=== PATIENT | male | born 1970 | race Hispanic/Latino ===

== ENCOUNTER 2023-12-11 09:37 | Inpatient (IN) | payer OTHER ==
[~2023-12-11] VITALS: Ht 172.7 cm; Wt 91.9 kg
[2023-12-11] VITALS (111 sets, daily range): BP systolic 74–291; BP diastolic 42–116; PULSE 43–133; RESP 5–76; O2SAT 90–100
[2023-12-11] MEDS ORDERED: EPINEPHRINE IV SCH (10:30)
[2023-12-11] MEDS ORDERED: NACL 0.9% IV SCH (10:30)
[2023-12-11] MEDS ORDERED: FUROSEMIDE 40MG VIAL IV ONE (10:30)
[2023-12-11] MEDS: PHARMACY COMMUNICATION MISC SCH (10:30)
[2023-12-11] MEDS: FUROSEMIDE 40MG VIAL ONE (10:45)
[2023-12-11] MEDS: SODIUM BICARB 50MEQ 50ML VIAL 100 ML ONE (10:45)
[2023-12-11 10:49] LABS: ABG BASE EXCESS -4.7 mmol/L (-2.0-3.0); ABG HCO3 24.2 mmol/L (21.0-28.0); ABG OXYGEN SATURATION 90.4 % (95.0-99.0); ABG PCO2 61 mmHg (35-48); ABG PH 7.215 (7.35-7.450); CARBON MONOXIDE 0.5; DEVICE COMMENT RR NPLISA; HHb 9.5; PO2, ARTERIAL BG 66.6 mmHg (83.0-108.0); VENT MODE, BG AC (ROOM AIR)
[2023-12-11] MEDS: SODIUM CHLORIDE IV SCH (10:55)
[2023-12-11] MEDS: FENTANYL 1000 MCG IV SCH (10:55)
[2023-12-11] MEDS: NOREPINEPHRIN 4MG/NS 250ML 250 ML IV SCH (10:57)
[2023-12-11] MEDS ORDERED: CARV6.25 PO (10:58)
[2023-12-11] MEDS: ASPIRIN 325MG TAB PO ONE (10:58)
[2023-12-11] MEDS: ROCURONIUM BROMIDE 10MG/1ML 5ML VL IV ONE ×2 (10:58→13:58)
[2023-12-11] MEDS ORDERED: CLOP75TA32 PO (10:58)
[2023-12-11] MEDS: SODIUM BICARB 50MEQ 50ML VIAL IV ONE ×3 (10:58→18:19)
[2023-12-11] MEDS: FUROSEMIDE 40MG VIAL IV ONE (10:58)
[2023-12-11] MEDS ORDERED: POTA-202 PO (10:58)
[2023-12-11] MEDS ORDERED: ATOR-2 PO (10:58)
[2023-12-11] MEDS ORDERED: FURO40TA5 PO (10:58)
[2023-12-11] MEDS ORDERED: METF-446 PO (10:59)
[2023-12-11] MEDS ORDERED: ASPI-891 PO (10:59)
[2023-12-11] MEDS ORDERED: IBUP-2070 PO (10:59)
[2023-12-11] MEDS ORDERED: DOXY25SU3 PO (10:59)
[2023-12-11] MEDS ORDERED: PIOG15TA66 PO (10:59)
[2023-12-11] MEDS ORDERED: PHARMACY COMMUNICATION MISC SCH (11:00)
[2023-12-11] MEDS: FENTANYL 1000MCG+NS 100ML 100 ML IV ONE (11:08)
[2023-12-11] MEDS: MIDAZOLAM 100MG-0.9% NS 100ML 100 ML IV ONE (11:08)
[2023-12-11] MEDS: CLOPIDOGREL 300MG TAB NG ONE (11:13)
[2023-12-11] MEDS: HEPARIN 25,000 UNITS/250ML D5W 250 ML IV SCH (11:15)
[2023-12-11 11:30] LABS: CREATININE 1.2 mg/dL (0.5-1.3)
[2023-12-11] MEDS ORDERED: KCL 20 MEQ ERTAB PO PRN (11:30)
[2023-12-11] MEDS ORDERED: POTASSIUM CHLORIDE 20MEQ/100ML 100 ML IV PRN ×2 (11:30)
[2023-12-11] MEDS ORDERED: POTASSIUM CHLORIDE 10% ELIXIR 20 MEQ/15 ML UDCUP PO PRN (11:30)
[2023-12-11] MEDS ORDERED: MAGNESIUM 2GM PREMIX 50ML 50 ML IV PRN (11:30)
[2023-12-11] MEDS ORDERED: ACETAMINOPHEN 650 MG SUPPOSITORY RC PRN (11:30)
[2023-12-11 11:43] LABS: ALBUMIN 2.8 g/dL (3.5-5.0); BILIRUBIN,TOTAL 0.3 mg/dL (0.2-1.0); THYROID STIMULATING HORMONE 2.6 uIU/mL (0.36-3.74); TOTAL PROTEIN, SERUM 6.2 g/dL (6.0-8.3)
[2023-12-11 11:45] LABS: BASOPHILS # (AUTO) 0.13 K/uL (0.00-0.20); BASOPHILS % (AUTO) 0.5 % (0.0-5.0); EOSINOPHILS # (AUTO) 0.14 K/uL (0.00-0.70); EOSINOPHILS % (AUTO) 0.6 % (0.0-8.0); IMMATURE GRANULOCYTE ABSOLUTE 0.54 K/uL (0-1); LYMPHOCYTES # (AUTO) 4.7 K/uL (1.0-4.8); LYMPHOCYTES % (AUTO) 18.8 % (21.0-51.0); MEAN CORPUSCULAR HEMOGLOBIN 31.4 pg (27.0-33.0); MEAN CORPUSCULAR HGB CONC 33.6 g/dL (32.0-36.0); MEAN CORPUSCULAR VOLUME 93.2 fL (79-99); MONOCYTES # (AUTO) 0.3 K/uL (0.1-1.0); MONOCYTES % (AUTO) 1.2 % (3.0-13.0); NEUTROPHILS # (AUTO) 19.1 K/uL (1.8-7.7); NEUTROPHILS % (AUTO) 76.7 % (40.0-77.0); PLATELET COUNT (AUTO) 160 K/uL (130-400); RED BLOOD CELL COUNT(AUTO) 4.72 MIL/uL (4.50-6.20); RED CELL DISTRIBUTION WIDTH 12.6 % (11.0-15.5); WHITE BLOOD COUNT (AUTO) 24.9 K/uL (4.8-10.8)
[2023-12-11 11:49] LABS: ABG BASE EXCESS -5.8 mmol/L (-2.0-3.0); ABG HCO3 21.5 mmol/L (21.0-28.0); ABG OXYGEN SATURATION 95.2 % (95.0-99.0); ABG PCO2 49 mmHg (35-48); ABG PH 7.261 (7.35-7.450); CARBON MONOXIDE 0.6; DEVICE COMMENT ALINE; HHb 4.8; PO2, ARTERIAL BG 82.1 mmHg (83.0-108.0); VENT MODE, BG AC (ROOM AIR)
[2023-12-11 12:16] LABS: MAGNESIUM 1.5 mg/dL (1.80-2.40); PHOSPHORUS 5.6 mg/dL (2.5-4.9)
[2023-12-11] MEDS: INSULIN GLARGINE 100 UNITS/ML 10 ML VIAL SQ ONE (12:27)
[2023-12-11] MEDS ORDERED: EPINEPHRINE 1MG/10ML(1:10,000) 0.1 MG/ML SYG IVP ONE (12:27)
[2023-12-11] MEDS: INSULIN HUMULIN R 100 UNIT/ML 3ML IV ONE (12:28)
[2023-12-11] MEDS: INSULIN HUMULIN R 100 UNIT/ML 3ML SQ SCH (12:29)
[2023-12-11] MEDS ORDERED: VASOPRESSIN 40 UNITS in 0.9%NACL 50ML 40 ML IV SCH (12:30)
[2023-12-11 12:38] LABS: CREATININE 1.2 mg/dL (0.5-1.3); POTASSIUM 4.6 mmol/L (3.5-5.1)
[2023-12-11 13:39] LABS: HEMOGLOBIN A1C 7.8 % (4.0-6.0)
[2023-12-11] MEDS: PROPOFOL 1000 MG/100 ML 100 ML IV ONE (14:33)
[2023-12-11 14:50] LABS: ABG BASE EXCESS -6.3 mmol/L (-2.0-3.0); ABG HCO3 19.1 mmol/L (21.0-28.0); ABG OXYGEN SATURATION 99.4 % (95.0-99.0); ABG PCO2 37 mmHg (35-48); ABG PH 7.325 (7.35-7.450); CARBON MONOXIDE 0.5; DEVICE COMMENT RN MILTON; HHb 0.6; PO2, ARTERIAL BG 289.8 mmHg (83.0-108.0); VENT MODE, BG AC (ROOM AIR)
[2023-12-11] MEDS: SODIUM BICARB 50MEQ 50ML VIAL 50 ML ONE (16:09)
[2023-12-11] MEDS: FUROSEMIDE 40MG VIAL IV SCH (17:22)
[2023-12-11] MEDS: PROPOFOL 1000 MG/100 ML IV PRN (17:24)
[2023-12-11 17:32] LABS: ABG BASE EXCESS -3.3 mmol/L (-2.0-3.0); ABG HCO3 19.6 mmol/L (21.0-28.0); ABG OXYGEN SATURATION 99.2 % (95.0-99.0); ABG PCO2 30 mmHg (35-48); ABG PH 7.436 (7.35-7.450); CARBON MONOXIDE 0.6; DEVICE COMMENT RN MILTON; HHb 0.8; VENT MODE, BG AC (ROOM AIR)
[2023-12-11 19:13] LABS: ABG BASE EXCESS -3.9 mmol/L (-2.0-3.0); ABG HCO3 18.8 mmol/L (21.0-28.0); ABG OXYGEN SATURATION 98.6 % (95.0-99.0); ABG PCO2 29 mmHg (35-48); ABG PH 7.434 (7.35-7.450); CARBON MONOXIDE 0.7; HHb 1.4; PO2, ARTERIAL BG 128.2 mmHg (83.0-108.0); VENT MODE, BG ACVC (ROOM AIR)
[2023-12-11] MEDS: ATORVASTATIN 40 MG TABLET NG SCH (21:15)
[2023-12-11] MEDS: PANTOPRAZOLE 40 MG/VIAL IVP SCH (21:32)
[2023-12-11] MEDS: POTASSIUM CHLORIDE 10% ELIXIR 20 MEQ/15 ML UDCUP PO PRN (21:33)
[2023-12-11] MEDS: POTASSIUM CHLORIDE 20MEQ/100ML 100 ML IV PRN (21:34)
[2023-12-11] MEDS: INSULIN GLARGINE 100 UNITS/ML 10 ML VIAL SQ SCH (21:36)
[2023-12-11 23:13] LABS: CREATININE 1.1 mg/dL (0.5-1.3); POTASSIUM 3.2 mmol/L (3.5-5.1)
[2023-12-12] VITALS (179 sets, daily range): BP systolic 0–198; BP diastolic 0–87; PULSE 43–109; RESP 13–24; O2SAT 98–100
[2023-12-12 00:04] LABS: ABG BASE EXCESS -6.8 mmol/L (-2.0-3.0); ABG HCO3 19.5 mmol/L (21.0-28.0); ABG OXYGEN SATURATION 97.8 % (95.0-99.0); ABG PCO2 42 mmHg (35-48); ABG PH 7.288 (7.35-7.450); CARBON MONOXIDE 0.6; HHb 2.2; PO2, ARTERIAL BG 109.8 mmHg (83.0-108.0); VENT MODE, BG ACVC (ROOM AIR)
[2023-12-12] MEDS: INSULIN HUMULIN R 100 UNIT/ML 3ML SQ SCH (01:01)
[2023-12-12] MEDS: MIDAZOLAM 50MG-0.9% NS 50ML 50 ML IV SCH (01:09)
[2023-12-12] MEDS: MAGNESIUM 2GM PREMIX 50ML 50 ML IV PRN (02:47)
[2023-12-12 04:15] LABS: ABG BASE EXCESS -8.9 mmol/L (-2.0-3.0); ABG HCO3 18.2 mmol/L (21.0-28.0); ABG OXYGEN SATURATION 96.7 % (95.0-99.0); ABG PCO2 43 mmHg (35-48); ABG PH 7.242 (7.35-7.450); CARBON MONOXIDE 0.4; HHb 3.3; PO2, ARTERIAL BG 96.6 mmHg (83.0-108.0); VENT MODE, BG ACVC (ROOM AIR)
[2023-12-12 04:31] LABS: BASOPHILS # (AUTO) 0.08 K/uL (0.00-0.20); BASOPHILS % (AUTO) 0.4 % (0.0-5.0); EOSINOPHILS # (AUTO) 0.02 K/uL (0.00-0.70); EOSINOPHILS % (AUTO) 0.1 % (0.0-8.0); LYMPHOCYTES # (AUTO) 2.2 K/uL (1.0-4.8); LYMPHOCYTES % (AUTO) 9.5 % (21.0-51.0); MEAN CORPUSCULAR HEMOGLOBIN 30.8 pg (27.0-33.0); MEAN CORPUSCULAR HGB CONC 34.3 g/dL (32.0-36.0); MEAN CORPUSCULAR VOLUME 89.6 fL (79-99); MONOCYTES # (AUTO) 0.8 K/uL (0.1-1.0); MONOCYTES % (AUTO) 3.3 % (3.0-13.0); NEUTROPHILS # (AUTO) 19.6 K/uL (1.8-7.7); NEUTROPHILS % (AUTO) 86.3 % (40.0-77.0); PLATELET COUNT (AUTO) 158 K/uL (130-400); RED BLOOD CELL COUNT(AUTO) 4.91 MIL/uL (4.50-6.20); RED CELL DISTRIBUTION WIDTH 12.3 % (11.0-15.5); WHITE BLOOD COUNT (AUTO) 22.7 K/uL (4.8-10.8)
[2023-12-12 04:44] LABS: ALBUMIN 2.7 g/dL (3.5-5.0); BILIRUBIN,TOTAL 0.4 mg/dL (0.2-1.0); CREATININE 1.1 mg/dL (0.5-1.3); MAGNESIUM 2.7 mg/dL (1.80-2.40); TOTAL PROTEIN, SERUM 6.2 g/dL (6.0-8.3)
[2023-12-12 04:45] LABS: RAPID GROUP A STREP negative (NEGATIVE)
[2023-12-12 04:46] LABS: AMPHET/METH SCREEN,URINE NEGATIVE (NEGATIVE); BARBITURATE SCREEN, URINE NEGATIVE (NEGATIVE); BENZODIAZEPINES SCREEN,URINE POSITIVE (NEGATIVE); CANNABINOID SCREEN,URINE NEGATIVE (NEGATIVE); COCAINE SCREEN,URINE POSITIVE (NEGATIVE); OPIATE SCREEN,URINE NEGATIVE (NEGATIVE); PHENCYCLIDINE SCREEN,URINE NEGATIVE (NEGATIVE)
[2023-12-12 04:48] LABS: APPEARANCE,URINE CLEAR (CLEAR); BILIRUBIN,URINE NEGATIVE (NEGATIVE); COLOR,URINE COLORLESS (YELLOW); GLUCOSE, URINE (UA) >=1000 mg/dL (NEGATIVE); KETONES,URINE NEGATIVE (NEGATIVE); LEUKOCYTE ESTERASE ,URINE NEGATIVE Leu/uL (NEGATIVE); NITRATE,URINE NEGATIVE (NEGATIVE); PROTEIN,URINE NEGATIVE (NEGATIVE); UROBILINOGEN,URINE 0.2 mg/dL (0.2-1.0)
[2023-12-12 04:51] LABS: ADD UA MICROSCOPIC YES
[2023-12-12 04:55] LABS: INFLUENZA TYPE A Negative For Type A (NEGATIVE); INFLUENZA TYPE B Negative For Type B (NEGATIVE)
[2023-12-12 04:56] LABS: POTASSIUM 2.4 mmol/L (3.5-5.1)
[2023-12-12 05:08] LABS: SARS-CoV-2, RNA, NAAT NEGATIVE SARS CoV-2 (NEGATIVE)
[2023-12-12 05:31] LABS: MUCUS,URINE RARE LPF (None Seen); RBC,URINE 0-1 /HPF (0-1); SQUAMOUS EPITHELIAL CELL,UR RARE /HPF (0-2); WBC,URINE 0-1 /HPF (0-1)
[2023-12-12] MEDS ORDERED: ALBUMIN (HUMAN) 5% 250 ML IV SCH (07:30)
[2023-12-12 08:17] LABS: ABG BASE EXCESS -7.9 mmol/L (-2.0-3.0); ABG HCO3 19.2 mmol/L (21.0-28.0); ABG OXYGEN SATURATION 98.3 % (95.0-99.0); ABG PCO2 45 mmHg (35-48); ABG PH 7.247 (7.35-7.450); DEVICE COMMENT ALNE; PO2, ARTERIAL BG 135.8 mmHg (83.0-108.0); VENT MODE, BG AC (ROOM AIR)
[2023-12-12] MEDS: HEPARIN 5,000 UNIT VIAL IV PRN (08:28)
[2023-12-12] MEDS: LEVOFLOXACIN 500 MG/D5W 100 ML 100 ML IV SCH (08:30)
[2023-12-12] MEDS: ASPIRIN 81MG CHEW TAB NG SCH (08:31)
[2023-12-12] MEDS: SODIUM BICARB 50MEQ 50ML VIAL IV ONE (08:31)
[2023-12-12] MEDS: CLOPIDOGREL 75MG TAB NG SCH (08:31)
[2023-12-12] MEDS ORDERED: ASPIRIN 81MG CHEW TAB PO SCH (09:00)
[2023-12-12] MEDS ORDERED: DEXMEDETOMIDINE 400MCG/NS100ML IV SCH (10:00)
[2023-12-12 11:47] LABS: ABG BASE EXCESS -6.6 mmol/L (-2.0-3.0); ABG HCO3 19.6 mmol/L (21.0-28.0); ABG OXYGEN SATURATION 98.1 % (95.0-99.0); ABG PCO2 42 mmHg (35-48); ABG PH 7.291 (7.35-7.450); CARBON MONOXIDE 0.4; DEVICE COMMENT ALINE; HHb 1.9; PO2, ARTERIAL BG 122.6 mmHg (83.0-108.0); VENT MODE, BG AC (ROOM AIR)
[2023-12-12] MEDS: KCL 20 MEQ ERTAB PO PRN (11:59)
[2023-12-12] MEDS: EPINEPHRINE 10 MG in 0.9% NACL 250ML IV SCH (12:35)
[2023-12-12] MEDS: SODIUM BICARB 8.4% 50ML SYRING 150 MEQ in DEXTROSE 5%-WATER 1,000 ML IVP SCH (12:36)
[2023-12-12] MEDS: INSULIN GLARGINE 100 UNITS/ML 10 ML VIAL SQ ONE (12:38)
[2023-12-12 15:11] LABS: CREATININE 1.2 mg/dL (0.5-1.3)
[2023-12-12 15:19] LABS: POTASSIUM 2.9 mmol/L (3.5-5.1)
[2023-12-12] MEDS: METRONIDAZOLE 500MG/100ML BAG 100 ML IVPB SCH (15:24)
[2023-12-12] MEDS: CEFEPIME HCL 2 GM VIAL IVPB SCH (15:25)
[2023-12-12 15:44] LABS: ABG HCO3 22.2 mmol/L (21.0-28.0); ABG OXYGEN SATURATION 98.7 % (95.0-99.0); ABG PCO2 44 mmHg (35-48); ABG PH 7.317 (7.35-7.450); CARBON MONOXIDE 0.4; DEVICE COMMENT ALINE; HHb 1.3; PO2, ARTERIAL BG 149.8 mmHg (83.0-108.0); VENT MODE, BG AC (ROOM AIR)
[2023-12-12] MEDS ORDERED: VANCOMYCIN PROTOCOL PER PHARMACY IV SCH (16:00)
[2023-12-12 16:06] LABS: BASOPHILS # (AUTO) 0.05 K/uL (0.00-0.20); BASOPHILS % (AUTO) 0.2 % (0.0-5.0); EOSINOPHILS # (AUTO) 0.01 K/uL (0.00-0.70); HEMATOCRIT 42.7 % (42-54); IMMATURE GRANULOCYTE ABSOLUTE 0.12 K/uL (0-1); LYMPHOCYTES # (AUTO) 1.9 K/uL (1.0-4.8); LYMPHOCYTES % (AUTO) 9.3 % (21.0-51.0); MEAN CORPUSCULAR HEMOGLOBIN 31.3 pg (27.0-33.0); MEAN CORPUSCULAR HGB CONC 34.2 g/dL (32.0-36.0); MEAN CORPUSCULAR VOLUME 91.6 fL (79-99); MONOCYTES # (AUTO) 0.5 K/uL (0.1-1.0); MONOCYTES % (AUTO) 2.4 % (3.0-13.0); NEUTROPHILS # (AUTO) 18.2 K/uL (1.8-7.7); NEUTROPHILS % (AUTO) 87.5 % (40.0-77.0); PLATELET COUNT (AUTO) 169 K/uL (130-400); RED BLOOD CELL COUNT(AUTO) 4.66 MIL/uL (4.50-6.20); RED CELL DISTRIBUTION WIDTH 12.7 % (11.0-15.5); WHITE BLOOD COUNT (AUTO) 20.8 K/uL (4.8-10.8)
[2023-12-12] MEDS: VANCOMYCIN 2GM/500 ML BAG 500 ML IV ONE (17:02)
[2023-12-12] MEDS: DOXYCYCLINE 100MG+NS 250ML 250 ML IV SCH (17:02)
[2023-12-12 19:26] LABS: BASOPHILS # (AUTO) 0.09 K/uL (0.00-0.20); BASOPHILS % (AUTO) 0.4 % (0.0-5.0); EOSINOPHILS # (AUTO) 0.04 K/uL (0.00-0.70); EOSINOPHILS % (AUTO) 0.2 % (0.0-8.0); HEMATOCRIT 41.1 % (42-54); IMMATURE GRANULOCYTE ABSOLUTE 0.15 K/uL (0-1); LYMPHOCYTES # (AUTO) 2.1 K/uL (1.0-4.8); LYMPHOCYTES % (AUTO) 10.3 % (21.0-51.0); MEAN CORPUSCULAR HEMOGLOBIN 30.8 pg (27.0-33.0); MEAN CORPUSCULAR HGB CONC 34.3 g/dL (32.0-36.0); MEAN CORPUSCULAR VOLUME 89.7 fL (79-99); MONOCYTES # (AUTO) 0.8 K/uL (0.1-1.0); MONOCYTES % (AUTO) 3.7 % (3.0-13.0); NEUTROPHILS # (AUTO) 17.2 K/uL (1.8-7.7); NEUTROPHILS % (AUTO) 84.7 % (40.0-77.0); PLATELET COUNT (AUTO) 159 K/uL (130-400); RED BLOOD CELL COUNT(AUTO) 4.58 MIL/uL (4.50-6.20); RED CELL DISTRIBUTION WIDTH 12.7 % (11.0-15.5); WHITE BLOOD COUNT (AUTO) 20.4 K/uL (4.8-10.8)
[2023-12-12 19:33] LABS: POTASSIUM 5.8 mmol/L (3.5-5.1)
[2023-12-12 19:35] LABS: ABG HCO3 21.4 mmol/L (21.0-28.0); ABG OXYGEN SATURATION 99.5 % (95.0-99.0); ABG PCO2 40 mmHg (35-48); ABG PH 7.345 (7.35-7.450); CARBON MONOXIDE 0.3; HHb 0.5; VENT MODE, BG AC VC (ROOM AIR)
[2023-12-12] MEDS: INSULIN GLARGINE 100 UNITS/ML 10 ML VIAL SQ SCH (20:58)
[2023-12-12] MEDS: ACETAMINOPHEN 500 MG TABLET PO PRN (21:08)
[2023-12-12 22:58] LABS: BASOPHILS # (AUTO) 0.09 K/uL (0.00-0.20); BASOPHILS % (AUTO) 0.5 % (0.0-5.0); EOSINOPHILS # (AUTO) 0.03 K/uL (0.00-0.70); EOSINOPHILS % (AUTO) 0.2 % (0.0-8.0); HEMATOCRIT 42.1 % (42-54); IMMATURE GRANULOCYTE ABSOLUTE 0.08 K/uL (0-1); LYMPHOCYTES # (AUTO) 1.5 K/uL (1.0-4.8); LYMPHOCYTES % (AUTO) 8.4 % (21.0-51.0); MEAN CORPUSCULAR VOLUME 91.3 fL (79-99); MONOCYTES # (AUTO) 0.9 K/uL (0.1-1.0); NEUTROPHILS # (AUTO) 15.1 K/uL (1.8-7.7); NEUTROPHILS % (AUTO) 85.4 % (40.0-77.0); PLATELET COUNT (AUTO) 148 K/uL (130-400); RED BLOOD CELL COUNT(AUTO) 4.61 MIL/uL (4.50-6.20); RED CELL DISTRIBUTION WIDTH 12.7 % (11.0-15.5); WHITE BLOOD COUNT (AUTO) 17.7 K/uL (4.8-10.8)
[2023-12-12] MEDS: NOREPINEPHRINE BITARTRATE 32 MG in 0.9% NACL 250ML 250 ML IV PRN (22:59)
[2023-12-12 23:34] LABS: ABG BASE EXCESS -1.8 mmol/L (-2.0-3.0); ABG HCO3 22.4 mmol/L (21.0-28.0); ABG OXYGEN SATURATION 99.4 % (95.0-99.0); ABG PCO2 37 mmHg (35-48); ABG PH 7.402 (7.35-7.450); CARBON MONOXIDE 0; HHb 0.6; PO2, ARTERIAL BG 427.2 mmHg (83.0-108.0); VENT MODE, BG AC VC (ROOM AIR)
[2023-12-13] VITALS (124 sets, daily range): BP systolic 72–154; BP diastolic -3–76; PULSE 90–116; RESP 12–99; O2SAT 99–100
[2023-12-13 00:17] LABS: CREATININE 1.2 mg/dL (0.5-1.3)
[2023-12-13 00:20] LABS: POTASSIUM 6.6 mmol/L (3.5-5.1)
[2023-12-13] MEDS: CALCIUM GLUC 1GM 1 GM in 0.9%NACL 100ML 100 ML IV SCH (00:27)
[2023-12-13] MEDS: KAYEXALATE 15GM/60ML PO ONE ×2 (00:27→08:17)
[2023-12-13] MEDS: SODIUM BICARB 50MEQ 50ML VIAL IV ONE (00:28)
[2023-12-13] MEDS: DEXTROSE 50%-WATER 50 ML DISP.SYRIN IV ONE ×3 (00:28→04:52)
[2023-12-13] MEDS ORDERED: CALCIUM GLUC 1GM 1 GM in 0.9%NACL 100ML 100 ML IV SCH (00:30)
[2023-12-13] MEDS: INSULIN HUMULIN R 100 UNIT/ML 3ML IV ONE (00:30)
[2023-12-13] MEDS: SODIUM BICARB 50MEQ 50ML VIAL 50 ML ONE (01:24)
[2023-12-13] MEDS: CALCIUM GLUC 1GM/10ML VIAL ONE ×2 (01:25→05:27)
[2023-12-13] MEDS: KAYEXALATE 15GM/60ML ONE (01:25)
[2023-12-13 03:48] LABS: ABG BASE EXCESS -0.8 mmol/L (-2.0-3.0); ABG OXYGEN SATURATION 97.8 % (95.0-99.0); ABG PCO2 40 mmHg (35-48); ABG PH 7.392 (7.35-7.450); CARBON MONOXIDE 0.7; HHb 2.2; PO2, ARTERIAL BG 102.1 mmHg (83.0-108.0); VENT MODE, BG AC VC (ROOM AIR)
[2023-12-13 03:54] LABS: BASOPHILS # (AUTO) 0.09 K/uL (0.00-0.20); BASOPHILS % (AUTO) 0.5 % (0.0-5.0); EOSINOPHILS # (AUTO) 0.02 K/uL (0.00-0.70); EOSINOPHILS % (AUTO) 0.1 % (0.0-8.0); HEMATOCRIT 38.8 % (42-54); LYMPHOCYTES # (AUTO) 1.9 K/uL (1.0-4.8); LYMPHOCYTES % (AUTO) 9.9 % (21.0-51.0); MEAN CORPUSCULAR HEMOGLOBIN 30.7 pg (27.0-33.0); MEAN CORPUSCULAR HGB CONC 33.8 g/dL (32.0-36.0); MEAN CORPUSCULAR VOLUME 90.9 fL (79-99); MONOCYTES # (AUTO) 1.2 K/uL (0.1-1.0); MONOCYTES % (AUTO) 6.1 % (3.0-13.0); NEUTROPHILS % (AUTO) 82.9 % (40.0-77.0); NUCLEATED RED BLOOD CELLS 0.1 % (0.0-0.19); PLATELET COUNT (AUTO) 156 K/uL (130-400); RED BLOOD CELL COUNT(AUTO) 4.27 MIL/uL (4.50-6.20); WHITE BLOOD COUNT (AUTO) 19.3 K/uL (4.8-10.8)
[2023-12-13 04:17] LABS: ALBUMIN 2.4 g/dL (3.5-5.0); BILIRUBIN,TOTAL 0.5 mg/dL (0.2-1.0); CREATININE 1.1 mg/dL (0.5-1.3); MAGNESIUM 1.9 mg/dL (1.80-2.40); PHOSPHORUS 3.7 mg/dL (2.5-4.9); TOTAL PROTEIN, SERUM 5.9 g/dL (6.0-8.3)
[2023-12-13] MEDS: ALBUTEROL 0.083% 2.5 MG/3 ML INH IH SCH (04:44)
[2023-12-13] MEDS: FUROSEMIDE 40MG VIAL IV ONE (04:52)
[2023-12-13] MEDS: INSULIN HUMULIN R 100 UNIT/ML 3ML IV STA (04:53)
[2023-12-13] MEDS: CALCIUM GLUC 1GM 1 GM in 0.9%NACL 100ML 100 ML IV STA (04:53)
[2023-12-13] MEDS: VANCOMYCIN 1G/250ML KIT 250 ML IV SCH (05:27)
[2023-12-13 07:29] LABS: ABG BASE EXCESS -1.5 mmol/L (-2.0-3.0); ABG HCO3 23.1 mmol/L (21.0-28.0); ABG OXYGEN SATURATION 98.6 % (95.0-99.0); ABG PCO2 39 mmHg (35-48); ABG PH 7.392 (7.35-7.450); CARBON MONOXIDE 0.3; DEVICE COMMENT ALINE; HHb 1.4; PO2, ARTERIAL BG 150.8 mmHg (83.0-108.0); VENT MODE, BG AC (ROOM AIR)
[2023-12-13 08:09] LABS: BASOPHILS # (AUTO) 0.07 K/uL (0.00-0.20); BASOPHILS % (AUTO) 0.4 % (0.0-5.0); EOSINOPHILS # (AUTO) 0.02 K/uL (0.00-0.70); EOSINOPHILS % (AUTO) 0.1 % (0.0-8.0); HEMATOCRIT 38.9 % (42-54); IMMATURE GRANULOCYTE ABSOLUTE 0.16 K/uL (0-1); LYMPHOCYTES % (AUTO) 15.1 % (21.0-51.0); MEAN CORPUSCULAR HEMOGLOBIN 30.9 pg (27.0-33.0); MEAN CORPUSCULAR HGB CONC 33.2 g/dL (32.0-36.0); MEAN CORPUSCULAR VOLUME 93.3 fL (79-99); MONOCYTES # (AUTO) 1.4 K/uL (0.1-1.0); MONOCYTES % (AUTO) 7.1 % (3.0-13.0); NEUTROPHILS # (AUTO) 15.2 K/uL (1.8-7.7); NEUTROPHILS % (AUTO) 76.5 % (40.0-77.0); PLATELET COUNT (AUTO) 143 K/uL (130-400); RED BLOOD CELL COUNT(AUTO) 4.17 MIL/uL (4.50-6.20); RED CELL DISTRIBUTION WIDTH 13.2 % (11.0-15.5); WHITE BLOOD COUNT (AUTO) 19.9 K/uL (4.8-10.8)
[2023-12-13 08:27] LABS: CREATININE 1.3 mg/dL (0.5-1.3)
[2023-12-13 08:32] LABS: POTASSIUM 6.5 mmol/L (3.5-5.1)
[2023-12-13] MEDS: FUROSEMIDE 40MG VIAL IV SCH (11:32)
[2023-12-13] MEDS: DOCUSATE NA 100MG/10ML UDCUP PO SCH (11:32)
[2023-12-13] MEDS: POLYETHYLENE GLYCOL 3350 17 GM POWD.PACK PO SCH (11:32)
[2023-12-13 12:43] LABS: EOSINOPHILS % (AUTO) 0.1 % (0.0-8.0); HEMATOCRIT 39.4 % (42-54); LYMPHOCYTES % (AUTO) 11.8 % (21.0-51.0); MEAN CORPUSCULAR HEMOGLOBIN 30.4 pg (27.0-33.0); MEAN CORPUSCULAR HGB CONC 32.5 g/dL (32.0-36.0); MEAN CORPUSCULAR VOLUME 93.6 fL (79-99); MONOCYTES % (AUTO) 7.4 % (3.0-13.0); NEUTROPHILS % (AUTO) 79.8 % (40.0-77.0); PLATELET COUNT (AUTO) 141 K/uL (130-400); RED BLOOD CELL COUNT(AUTO) 4.21 MIL/uL (4.50-6.20); RED CELL DISTRIBUTION WIDTH 13.2 % (11.0-15.5); WHITE BLOOD COUNT (AUTO) 18.2 K/uL (4.8-10.8)
[2023-12-13 12:44] LABS: BASOPHILS # (AUTO) 0.08 K/uL (0.00-0.20); BASOPHILS % (AUTO) 0.4 % (0.0-5.0); EOSINOPHILS # (AUTO) 0.01 K/uL (0.00-0.70); IMMATURE GRANULOCYTE ABSOLUTE 0.09 K/uL (0-1); LYMPHOCYTES # (AUTO) 2.1 K/uL (1.0-4.8); MONOCYTES # (AUTO) 1.4 K/uL (0.1-1.0); NEUTROPHILS # (AUTO) 14.5 K/uL (1.8-7.7); NUCLEATED RED BLOOD CELLS 0.1 % (0.0-0.19)
[2023-12-13 12:54] LABS: CREATININE 1.4 mg/dL (0.5-1.3)
[2023-12-13 12:57] LABS: POTASSIUM 6.9 mmol/L (3.5-5.1)
[2023-12-13] MEDS: NA ZIRCON CYCLOSIL(LOKELMA 10GM) PO ONE ×3 (13:20→16:29)
[2023-12-13] MEDS ORDERED: ACETAMINOPHEN 500 MG TABLET PO PRN (15:00)
[2023-12-13 15:58] LABS: BASOPHILS # (AUTO) 0.08 K/uL (0.00-0.20); BASOPHILS % (AUTO) 0.5 % (0.0-5.0); EOSINOPHILS # (AUTO) 0.02 K/uL (0.00-0.70); EOSINOPHILS % (AUTO) 0.1 % (0.0-8.0); HEMATOCRIT 39.1 % (42-54); IMMATURE GRANULOCYTE ABSOLUTE 0.11 K/uL (0-1); LYMPHOCYTES # (AUTO) 2.6 K/uL (1.0-4.8); LYMPHOCYTES % (AUTO) 14.9 % (21.0-51.0); MEAN CORPUSCULAR HEMOGLOBIN 30.8 pg (27.0-33.0); MEAN CORPUSCULAR HGB CONC 32.5 g/dL (32.0-36.0); MEAN CORPUSCULAR VOLUME 94.9 fL (79-99); MONOCYTES # (AUTO) 1.6 K/uL (0.1-1.0); NEUTROPHILS % (AUTO) 74.9 % (40.0-77.0); NUCLEATED RED BLOOD CELLS 0.1 % (0.0-0.19); PLATELET COUNT (AUTO) 133 K/uL (130-400); RED BLOOD CELL COUNT(AUTO) 4.12 MIL/uL (4.50-6.20); RED CELL DISTRIBUTION WIDTH 13.5 % (11.0-15.5); WHITE BLOOD COUNT (AUTO) 17.4 K/uL (4.8-10.8)
[2023-12-13 16:08] LABS: CREATININE 1.3 mg/dL (0.5-1.3)
[2023-12-13 16:12] LABS: POTASSIUM 6.6 mmol/L (3.5-5.1)
[2023-12-13 20:41] LABS: BASOPHILS # (AUTO) 0.06 K/uL (0.00-0.20); BASOPHILS % (AUTO) 0.4 % (0.0-5.0); EOSINOPHILS # (AUTO) 0.03 K/uL (0.00-0.70); EOSINOPHILS % (AUTO) 0.2 % (0.0-8.0); HEMATOCRIT 33.7 % (42-54); IMMATURE GRANULOCYTE ABSOLUTE 0.07 K/uL (0-1); LYMPHOCYTES # (AUTO) 2.7 K/uL (1.0-4.8); LYMPHOCYTES % (AUTO) 16.8 % (21.0-51.0); MEAN CORPUSCULAR HEMOGLOBIN 31.2 pg (27.0-33.0); MEAN CORPUSCULAR HGB CONC 33.2 g/dL (32.0-36.0); MEAN CORPUSCULAR VOLUME 93.9 fL (79-99); MONOCYTES # (AUTO) 1.1 K/uL (0.1-1.0); MONOCYTES % (AUTO) 6.6 % (3.0-13.0); NEUTROPHILS % (AUTO) 75.6 % (40.0-77.0); NUCLEATED RED BLOOD CELLS 0.1 % (0.0-0.19); PLATELET COUNT (AUTO) 114 K/uL (130-400); RED BLOOD CELL COUNT(AUTO) 3.59 MIL/uL (4.50-6.20); RED CELL DISTRIBUTION WIDTH 13.3 % (11.0-15.5); WHITE BLOOD COUNT (AUTO) 15.9 K/uL (4.8-10.8)
[2023-12-13 20:54] LABS: POTASSIUM 4.6 mmol/L (3.5-5.1)
[2023-12-14] VITALS (106 sets, daily range): BP systolic 73–164; BP diastolic 36–81; PULSE 58–107; RESP 13–21; TEMP 100.1; O2SAT 98–100
[2023-12-14 00:31] LABS: POTASSIUM 4.1 mmol/L (3.5-5.1)
[2023-12-14 05:35] LABS: ALBUMIN 2.2 g/dL (3.5-5.0); BILIRUBIN,TOTAL 0.7 mg/dL (0.2-1.0); CREATININE 0.9 mg/dL (0.5-1.3); MAGNESIUM 1.6 mg/dL (1.80-2.40); PHOSPHORUS 3.1 mg/dL (2.5-4.9); POTASSIUM 3.9 mmol/L (3.5-5.1); TOTAL PROTEIN, SERUM 5.5 g/dL (6.0-8.3)
[2023-12-14] MEDS: VANCOMYCIN 1.25 GM/250 ML BAG 250 ML IV SCH (07:07)
[2023-12-14] MEDS: FUROSEMIDE 40MG VIAL IV SCH (07:55)
[2023-12-14] MEDS: DEXMEDETOMIDINE 400MCG/NS100ML IV ONE (11:02)
[2023-12-14] MEDS: MIDODRINE HCL 5 MG TABLET PO SCH (11:03)
[2023-12-14 14:24] LABS: CHOLESTEROL 113 mg/dL (<200); HDL CHOLESTEROL 36 mg/dL (29-71); LDL DIRECT 76 mg/dL (0-99); TRIGLYCERIDES 96 mg/dL (30-200)
[2023-12-14] MEDS: DEXMEDETOMIDINE 400MCG/NS100ML IV SCH (19:54)
[2023-12-15] VITALS (73 sets, daily range): BP systolic 89–163; BP diastolic 43–85; PULSE 52–83; RESP 13–53; TEMP 98.5–99.1; O2SAT 97–100
[2023-12-15 04:03] LABS: ALBUMIN 2.1 g/dL (3.5-5.0); BILIRUBIN,TOTAL 0.8 mg/dL (0.2-1.0); CREATININE 0.9 mg/dL (0.5-1.3); MAGNESIUM 1.8 mg/dL (1.80-2.40); PHOSPHORUS 2.2 mg/dL (2.5-4.9); POTASSIUM 3.3 mmol/L (3.5-5.1); TOTAL PROTEIN, SERUM 5.5 g/dL (6.0-8.3)
[2023-12-15 10:21] LABS: MAGNESIUM 2.1 mg/dL (1.80-2.40); POTASSIUM 3.7 mmol/L (3.5-5.1)
[2023-12-15 11:36] LABS: ABG BASE EXCESS 2.6 mmol/L (-2.0-3.0); ABG HCO3 25.2 mmol/L (21.0-28.0); ABG OXYGEN SATURATION 98.4 % (95.0-99.0); ABG PCO2 33 mmHg (35-48); CPAP, BG 5 cm H2O; PO2, ARTERIAL BG 110.9 mmHg (83.0-108.0); VENT MODE, BG CPAP PS 10 (ROOM AIR)
[2023-12-15] MEDS: FUROSEMIDE 40MG VIAL IV ONE (11:52)
[2023-12-15] MEDS: HEPARIN 5,000 UNIT VIAL IV ONE (18:03)
[2023-12-15] MEDS: ACETYLCYSTEINE 20% 200MG/ML 4ML VIAL IH SCH (18:47)
[2023-12-15] MEDS: IPRATROPIUM 0.5 MG/2.5 ML INH IH SCH (18:47)
[2023-12-16] VITALS (32 sets, daily range): BP systolic 84–125; BP diastolic 44–77; PULSE 53–78; RESP 16–68; O2SAT 98–100
[2023-12-16 04:25] LABS: ALBUMIN 2.1 g/dL (3.5-5.0); CREATININE 0.7 mg/dL (0.5-1.3); MAGNESIUM 1.7 mg/dL (1.80-2.40); PHOSPHORUS 3.4 mg/dL (2.5-4.9); TOTAL PROTEIN, SERUM 5.2 g/dL (6.0-8.3)
[2023-12-16 04:59] LABS: POTASSIUM 2.8 mmol/L (3.5-5.1)
[2023-12-16] MEDS: FUROSEMIDE 20MG VIAL IV SCH (08:17)
[2023-12-16] MEDS: LEVOFLOXACIN 500 MG/D5W 100 ML 100 ML IV SCH (10:23)
[2023-12-16 10:49] LABS: MAGNESIUM 1.9 mg/dL (1.80-2.40); POTASSIUM 3.2 mmol/L (3.5-5.1)
[2023-12-16] MEDS ORDERED: GLUCAGON 1MG KIT 1 MG ML IM PRN (17:10)
[2023-12-16] MEDS: DEXTROSE 50%-WATER 50 ML DISP.SYRIN IV PRN (17:13)
[2023-12-16] MEDS: INSULIN GLARGINE 100 UNITS/ML 10 ML VIAL SQ SCH (20:58)
[2023-12-17] VITALS (14 sets, daily range): BP systolic 130–152; BP diastolic 76–90; PULSE 74–86; RESP 16–32; O2SAT 94–96
[2023-12-17] MEDS: MORPHINE 2 MG SYG IVP PRN (01:39)
[2023-12-17 04:42] LABS: BASOPHILS # (AUTO) 0.04 K/uL (0.00-0.20); BASOPHILS % (AUTO) 0.4 % (0.0-5.0); EOSINOPHILS # (AUTO) 0.19 K/uL (0.00-0.70); EOSINOPHILS % (AUTO) 2.1 % (0.0-8.0); IMMATURE GRANULOCYTE ABSOLUTE 0.04 K/uL (0-1); LYMPHOCYTES # (AUTO) 2.4 K/uL (1.0-4.8); LYMPHOCYTES % (AUTO) 26.8 % (21.0-51.0); MEAN CORPUSCULAR HEMOGLOBIN 30.7 pg (27.0-33.0); MEAN CORPUSCULAR HGB CONC 33.3 g/dL (32.0-36.0); MONOCYTES # (AUTO) 0.8 K/uL (0.1-1.0); MONOCYTES % (AUTO) 9.2 % (3.0-13.0); NEUTROPHILS # (AUTO) 5.4 K/uL (1.8-7.7); NEUTROPHILS % (AUTO) 61.1 % (40.0-77.0); PLATELET COUNT (AUTO) 128 K/uL (130-400); RED BLOOD CELL COUNT(AUTO) 3.26 MIL/uL (4.50-6.20); RED CELL DISTRIBUTION WIDTH 13.2 % (11.0-15.5); WHITE BLOOD COUNT (AUTO) 8.9 K/uL (4.8-10.8)
[2023-12-17 05:04] LABS: ALBUMIN 2.2 g/dL (3.5-5.0); BILIRUBIN,TOTAL 0.8 mg/dL (0.2-1.0); CREATININE 0.8 mg/dL (0.5-1.3); MAGNESIUM 2.1 mg/dL (1.80-2.40); PHOSPHORUS 3.3 mg/dL (2.5-4.9); POTASSIUM 3.7 mmol/L (3.5-5.1); TOTAL PROTEIN, SERUM 5.5 g/dL (6.0-8.3)
[2023-12-17] MEDS: HYDROCODONE/ACETAMINOPHEN 10/325 MG TAB PO PRN (06:57)
[2023-12-17] MEDS: METOPROLOL SUCCINATE 25 MG TAB.SR.24H PO SCH (08:45)
[2023-12-17] MEDS: ONDANSETRON 4MG INJ IVP PRN (10:13)
[2023-12-17] MEDS: LIDOCAINE 5% TOPICAL PATCH TP ONE (11:03)
[2023-12-17] MEDS ORDERED: NITROGLYCERIN 0.4 MG SL TAB SL PRN (17:30)
[2023-12-17] MEDS: NITROGLYCERIN 1GM OINT 1 INCH/1GM TD SCH (17:54)
[2023-12-17] MEDS: FUROSEMIDE 40MG VIAL IV SCH (21:14)
[2023-12-18] VITALS (15 sets, daily range): BP systolic 84–138; BP diastolic 64–92; PULSE 68–96; RESP 16–24; O2SAT 97–98
[2023-12-18 04:37] LABS: BASOPHILS # (AUTO) 0.03 K/uL (0.00-0.20); BASOPHILS % (AUTO) 0.3 % (0.0-5.0); EOSINOPHILS # (AUTO) 0.08 K/uL (0.00-0.70); EOSINOPHILS % (AUTO) 0.8 % (0.0-8.0); HEMATOCRIT 33.8 % (42-54); IMMATURE GRANULOCYTE ABSOLUTE 0.07 K/uL (0-1); LYMPHOCYTES # (AUTO) 2.3 K/uL (1.0-4.8); LYMPHOCYTES % (AUTO) 22.2 % (21.0-51.0); MEAN CORPUSCULAR HEMOGLOBIN 31.4 pg (27.0-33.0); MEAN CORPUSCULAR HGB CONC 33.1 g/dL (32.0-36.0); MEAN CORPUSCULAR VOLUME 94.7 fL (79-99); NEUTROPHILS # (AUTO) 6.8 K/uL (1.8-7.7); PLATELET COUNT (AUTO) 162 K/uL (130-400); RED BLOOD CELL COUNT(AUTO) 3.57 MIL/uL (4.50-6.20); RED CELL DISTRIBUTION WIDTH 13.4 % (11.0-15.5); WHITE BLOOD COUNT (AUTO) 10.3 K/uL (4.8-10.8)
[2023-12-18 04:48] LABS: CREATININE 0.8 mg/dL (0.5-1.3); PHOSPHORUS 3.5 mg/dL (2.5-4.9); POTASSIUM 3.7 mmol/L (3.5-5.1)
[2023-12-18] MEDS: LIDOCAINE 5% TOPICAL PATCH TP SCH (09:57)
[2023-12-19] VITALS (18 sets, daily range): BP systolic 124–143; BP diastolic 74–87; PULSE 74–88; RESP 18–22; O2SAT 92–98
[2023-12-19 04:41] LABS: BASOPHILS # (AUTO) 0.03 K/uL (0.00-0.20); BASOPHILS % (AUTO) 0.3 % (0.0-5.0); EOSINOPHILS # (AUTO) 0.13 K/uL (0.00-0.70); EOSINOPHILS % (AUTO) 1.4 % (0.0-8.0); HEMATOCRIT 32.2 % (42-54); IMMATURE GRANULOCYTE ABSOLUTE 0.07 K/uL (0-1); LYMPHOCYTES # (AUTO) 2.5 K/uL (1.0-4.8); LYMPHOCYTES % (AUTO) 26.7 % (21.0-51.0); MEAN CORPUSCULAR HEMOGLOBIN 30.9 pg (27.0-33.0); MEAN CORPUSCULAR HGB CONC 34.2 g/dL (32.0-36.0); MEAN CORPUSCULAR VOLUME 90.4 fL (79-99); MONOCYTES % (AUTO) 10.2 % (3.0-13.0); NEUTROPHILS # (AUTO) 5.7 K/uL (1.8-7.7); NEUTROPHILS % (AUTO) 60.7 % (40.0-77.0); PLATELET COUNT (AUTO) 212 K/uL (130-400); RED BLOOD CELL COUNT(AUTO) 3.56 MIL/uL (4.50-6.20); RED CELL DISTRIBUTION WIDTH 13.8 % (11.0-15.5); WHITE BLOOD COUNT (AUTO) 9.4 K/uL (4.8-10.8)
[2023-12-19 05:01] LABS: CREATININE 0.8 mg/dL (0.5-1.3); POTASSIUM 3.2 mmol/L (3.5-5.1)
[2023-12-19] MEDS: POTASSIUM CHLORIDE 20MEQ/100ML 100 ML IV PRN (05:52)
[2023-12-19 06:09] LABS: APPEARANCE,URINE CLEAR (CLEAR); BILIRUBIN,URINE NEGATIVE (NEGATIVE); COLOR,URINE YELLOW (YELLOW); GLUCOSE, URINE (UA) NEGATIVE (NEGATIVE); KETONES,URINE 5 mg/dL (NEGATIVE); LEUKOCYTE ESTERASE ,URINE 75 Leu/uL (NEGATIVE); NITRATE,URINE NEGATIVE (NEGATIVE); OCCULT BLOOD,URINE MODERATE (NEGATIVE); PROTEIN,URINE 70 mg/dL (NEGATIVE); UROBILINOGEN,URINE 0.2 mg/dL (0.2-1.0)
[2023-12-19 06:20] LABS: ADD UA MICROSCOPIC YES
[2023-12-19 06:23] LABS: MUCUS,URINE RARE LPF (None Seen); RBC,URINE TNTC /HPF (0-1); YEAST,URINE BUDDING FEW /HPF (None Seen)
[2023-12-19] MEDS ORDERED: LIDOCAINE HCL 400MG/20ML VIAL ONE (08:49)
[2023-12-19] MEDS ORDERED: SODIUM BICARB 50MEQ 50ML VIAL 50 ML ONE (08:49)
[2023-12-19] MEDS ORDERED: NITROGLYCERIN 50MG VIAL ONE (08:50)
[2023-12-19] MEDS ORDERED: HEPARIN 10,000 UNIT/10ML (1,000 UNIT/ML) VIAL ONE (08:50)
[2023-12-19] MEDS ORDERED: VERAPAMIL HCL 2.5 MG/ML VIAL ONE (09:01)
[2023-12-19] MEDS ORDERED: FENTANYL CITRATE PF 50 MCG/1 ML 2ML VIAL ONE (09:17)
[2023-12-19] MEDS ORDERED: MIDAZOLAM HCL 1 MG/ML 2ML VIAL ONE (09:18)
[2023-12-19] MEDS ORDERED: IOHEXOL 350 MG/ML 100ML INFUS..BTL IV ONE (10:10)
[2023-12-19] MEDS ORDERED: GLUCAGON 1MG KIT 1 MG ML IM PRN (10:30)
[2023-12-19] MEDS ORDERED: DEXTROSE 50%-WATER 50 ML DISP.SYRIN IV PRN (10:30)
[2023-12-19 13:39] LABS: ABG BASE EXCESS 2.6 mmol/L (-2.0-3.0); ABG HCO3 25.1 mmol/L (21.0-28.0); ABG OXYGEN SATURATION 95.4 % (95.0-99.0); ABG PCO2 33 mmHg (35-48); ABG PH 7.502 (7.35-7.450); DEVICE COMMENT THOMAS RN RB; PO2, ARTERIAL BG 69.2 mmHg (83.0-108.0); VENT MODE, BG RA (ROOM AIR)
[2023-12-19 16:53] LABS: INR 1.08 (0.85-1.15); PROTHROMBIN TIME 11.6 SEC (9.6-11.6)
[2023-12-19 16:55] LABS: PARTIAL THROMBOPLASTIN TIME 23.3 SEC (26.3-35.5)
[2023-12-19] MEDS: HEPARIN 5,000 UNIT VIAL IV STA (17:44)
[2023-12-19] MEDS: POTASSIUM CHLORIDE 10MEQ/100ML 100 ML IV ONE ×2 (22:10→23:53)
[2023-12-19 23:20] LABS: INR 1.09 (0.85-1.15); PROTHROMBIN TIME 11.7 SEC (9.6-11.6)
[2023-12-19 23:21] LABS: PARTIAL THROMBOPLASTIN TIME 45.3 SEC (26.3-35.5)
[2023-12-20] VITALS (40 sets, daily range): BP systolic 91–141; BP diastolic 50–89; PULSE 57–97; RESP 11–33; O2SAT 93–97
[2023-12-20 05:12] LABS: BASOPHILS # (AUTO) 0.05 K/uL (0.00-0.20); BASOPHILS % (AUTO) 0.6 % (0.0-5.0); EOSINOPHILS # (AUTO) 0.14 K/uL (0.00-0.70); EOSINOPHILS % (AUTO) 1.6 % (0.0-8.0); HEMATOCRIT 34.6 % (42-54); IMMATURE GRANULOCYTE ABSOLUTE 0.04 K/uL (0-1); LYMPHOCYTES # (AUTO) 2.7 K/uL (1.0-4.8); LYMPHOCYTES % (AUTO) 30.4 % (21.0-51.0); MEAN CORPUSCULAR HEMOGLOBIN 30.4 pg (27.0-33.0); MEAN CORPUSCULAR HGB CONC 32.7 g/dL (32.0-36.0); MONOCYTES # (AUTO) 0.9 K/uL (0.1-1.0); MONOCYTES % (AUTO) 10.2 % (3.0-13.0); NEUTROPHILS # (AUTO) 5.1 K/uL (1.8-7.7); NEUTROPHILS % (AUTO) 56.8 % (40.0-77.0); PLATELET COUNT (AUTO) 260 K/uL (130-400); RED BLOOD CELL COUNT(AUTO) 3.72 MIL/uL (4.50-6.20); RED CELL DISTRIBUTION WIDTH 14.3 % (11.0-15.5)
[2023-12-20 05:24] LABS: INR 1.09 (0.85-1.15); PROTHROMBIN TIME 11.7 SEC (9.6-11.6)
[2023-12-20 05:25] LABS: PARTIAL THROMBOPLASTIN TIME 53.7 SEC (26.3-35.5)
[2023-12-20 06:10] LABS: CREATININE 0.7 mg/dL (0.5-1.3); POTASSIUM 3.3 mmol/L (3.5-5.1)
[2023-12-20 09:21] LABS: BILIRUBIN,DIRECT 0.3 mg/dL (0.0-0.3); BILIRUBIN,TOTAL 1.1 mg/dL (0.2-1.0); TOTAL PROTEIN, SERUM 7.1 g/dL (6.0-8.3)
[2023-12-20] MEDS: INSULIN HUMULIN R 100 UNIT/ML 3ML SQ SCH (11:14)
[2023-12-20 11:33] LABS: INR 1.1 (0.85-1.15); PROTHROMBIN TIME 11.8 SEC (9.6-11.6)
[2023-12-20 11:34] LABS: PARTIAL THROMBOPLASTIN TIME 61.4 SEC (26.3-35.5)
[2023-12-20] MEDS: ALPRAZOLAM 0.25 MG TABLET PO PRN (13:07)
[2023-12-20] MEDS: LORAZEPAM 2 MG/ML 1 ML VIAL IVP ONE (13:20)
[2023-12-20] MEDS: DiphenhydrAMINE HCL 50 MG/ML VIAL IV STA (13:49)
[2023-12-20] MEDS: DEXMEDETOMIDINE 400MCG/NS100ML IV ONE ×2 (16:11→19:09)
[2023-12-20 17:15] LABS: ABG BASE EXCESS 2.4 mmol/L (-2.0-3.0); ABG HCO3 23.9 mmol/L (21.0-28.0); ABG OXYGEN SATURATION 94.7 % (95.0-99.0); ABG PCO2 29 mmHg (35-48); ABG PH 7.534 (7.35-7.450); DEVICE COMMENT RR, LEO,RN; PO2, ARTERIAL BG 63.5 mmHg (83.0-108.0); VENT MODE, BG RA (ROOM AIR)
[2023-12-20] MEDS: DIAZEPAM 5 MG/ML 2 ML SYG IV PRN (20:55)
[2023-12-20] MEDS: MELATONIN 5 MG TABLET PO SCH (20:56)
[2023-12-20] MEDS: DEXMEDETOMIDINE 400MCG/NS100ML IV PRN (23:38)
[2023-12-21] VITALS (95 sets, daily range): BP systolic 75–141; BP diastolic 37–88; PULSE 51–83; RESP 10–31; O2SAT 95–100
[2023-12-21 04:55] LABS: HEMATOCRIT 31.9 % (42-54); MEAN CORPUSCULAR HEMOGLOBIN 31.6 pg (27.0-33.0); MEAN CORPUSCULAR HGB CONC 34.8 g/dL (32.0-36.0); MEAN CORPUSCULAR VOLUME 90.9 fL (79-99); RED BLOOD CELL COUNT(AUTO) 3.51 MIL/uL (4.50-6.20); RED CELL DISTRIBUTION WIDTH 14.4 % (11.0-15.5); WHITE BLOOD COUNT (AUTO) 11.1 K/uL (4.8-10.8)
[2023-12-21 05:11] LABS: INR 1.16 (0.85-1.15); PROTHROMBIN TIME 12.4 SEC (9.6-11.6)
[2023-12-21 05:12] LABS: PARTIAL THROMBOPLASTIN TIME 74.5 SEC (26.3-35.5)
[2023-12-21 05:20] LABS: ALBUMIN 2.4 g/dL (3.5-5.0); CREATININE 0.9 mg/dL (0.5-1.3); MAGNESIUM 1.9 mg/dL (1.80-2.40); POTASSIUM 3.2 mmol/L (3.5-5.1); TOTAL PROTEIN, SERUM 6.3 g/dL (6.0-8.3)
[2023-12-21] MEDS: ENOXAPARIN SODIUM 40 MG/0.4 ML SYRINGE SQ SCH (08:22)
[2023-12-21] MEDS: CLOPIDOGREL 300MG TAB PO ONE (08:23)
[2023-12-21] MEDS: THIAMINE HCL 100 MG/ML 2ML VIAL IVP SCH (08:25)
[2023-12-21] MEDS: FUROSEMIDE 40 MG TABLET PO SCH (08:25)
[2023-12-21] MEDS: FOLIC ACID 5 MG/ML VIAL IV SCH (08:45)
[2023-12-21] MEDS: NOREPINEPHRIN 4MG/NS 250ML 250 ML IV SCH (10:58)
[2023-12-21 13:59] LABS: ABG OXYGEN SATURATION 83.9 % (95.0-99.0); BASE EXCESS,VENOUS BLOOD GAS -0.3 (-2.0-3.0); HCO3,VENOUS BLOOD GAS 21.8 (21.0-28.0); PCO2,VENOUS BLOOD GAS 29 (32-45); PO2,VENOUS BLOOD GAS 43.5 mmHg (35.0-45.0); VENT MODE, BG RA (ROOM AIR)
[2023-12-21] MEDS: DIAZEPAM 5 MG/ML 2 ML SYG IV SCH (17:30)
[2023-12-22] VITALS (63 sets, daily range): BP systolic 96–132; BP diastolic 47–92; PULSE 63–88; RESP 6–84; O2SAT 95–100
[2023-12-22 04:06] LABS: BASOPHILS # (AUTO) 0.04 K/uL (0.00-0.20); BASOPHILS % (AUTO) 0.4 % (0.0-5.0); EOSINOPHILS # (AUTO) 0.29 K/uL (0.00-0.70); IMMATURE GRANULOCYTE ABSOLUTE 0.04 K/uL (0-1); LYMPHOCYTES # (AUTO) 2.5 K/uL (1.0-4.8); LYMPHOCYTES % (AUTO) 25.5 % (21.0-51.0); MEAN CORPUSCULAR HEMOGLOBIN 31.1 pg (27.0-33.0); MEAN CORPUSCULAR HGB CONC 33.8 g/dL (32.0-36.0); MEAN CORPUSCULAR VOLUME 92.2 fL (79-99); MONOCYTES # (AUTO) 0.8 K/uL (0.1-1.0); MONOCYTES % (AUTO) 8.2 % (3.0-13.0); NEUTROPHILS # (AUTO) 6.1 K/uL (1.8-7.7); NEUTROPHILS % (AUTO) 62.5 % (40.0-77.0); PLATELET COUNT (AUTO) 278 K/uL (130-400); RED BLOOD CELL COUNT(AUTO) 3.47 MIL/uL (4.50-6.20); RED CELL DISTRIBUTION WIDTH 14.9 % (11.0-15.5); WHITE BLOOD COUNT (AUTO) 9.8 K/uL (4.8-10.8)
[2023-12-22 04:33] LABS: CREATININE 0.8 mg/dL (0.5-1.3); POTASSIUM 3.4 mmol/L (3.5-5.1)
[2023-12-22] MEDS: SPIRONOLACTONE 25 MG TAB PO SCH (07:59)
[2023-12-22] MEDS: CLOPIDOGREL 75MG TAB PO SCH (07:59)
[2023-12-22] MEDS ORDERED: DIAZEPAM 5 MG/ML 2 ML SYG IV PRN (09:30)
[2023-12-22] MEDS: LACTULOSE 20 GM/30 ML UDCUP PO PRN (21:09)
[2023-12-23] VITALS (13 sets, daily range): BP systolic 111–117; BP diastolic 59–76; PULSE 75–91; RESP 18–20; O2SAT 96–100
[2023-12-23 05:11] LABS: CREATININE 0.7 mg/dL (0.5-1.3); MAGNESIUM 1.9 mg/dL (1.80-2.40); POTASSIUM 3.6 mmol/L (3.5-5.1)
[2023-12-23 05:13] LABS: BASOPHILS # (AUTO) 0.04 K/uL (0.00-0.20); BASOPHILS % (AUTO) 0.4 % (0.0-5.0); EOSINOPHILS # (AUTO) 0.24 K/uL (0.00-0.70); EOSINOPHILS % (AUTO) 2.5 % (0.0-8.0); HEMATOCRIT 31.4 % (42-54); IMMATURE GRANULOCYTE ABSOLUTE 0.05 K/uL (0-1); LYMPHOCYTES # (AUTO) 2.5 K/uL (1.0-4.8); LYMPHOCYTES % (AUTO) 25.2 % (21.0-51.0); MEAN CORPUSCULAR HGB CONC 34.4 g/dL (32.0-36.0); MEAN CORPUSCULAR VOLUME 90.2 fL (79-99); MONOCYTES # (AUTO) 0.7 K/uL (0.1-1.0); MONOCYTES % (AUTO) 7.3 % (3.0-13.0); NEUTROPHILS # (AUTO) 6.2 K/uL (1.8-7.7); NEUTROPHILS % (AUTO) 64.1 % (40.0-77.0); PLATELET COUNT (AUTO) 289 K/uL (130-400); RED BLOOD CELL COUNT(AUTO) 3.48 MIL/uL (4.50-6.20); RED CELL DISTRIBUTION WIDTH 14.9 % (11.0-15.5); WHITE BLOOD COUNT (AUTO) 9.7 K/uL (4.8-10.8)
[2023-12-23] MEDS: EMPAGLIFLOZIN 10MG TABLET PO SCH (10:09)
[2023-12-23] MEDS: LISINOPRIL 2.5 MG TABLET PO SCH (20:45)
[2023-12-24] VITALS (15 sets, daily range): BP systolic 94–122; BP diastolic 61–74; PULSE 69–97; RESP 16–20; O2SAT 95–98
[2023-12-24 03:54] LABS: BASOPHILS # (AUTO) 0.05 K/uL (0.00-0.20); BASOPHILS % (AUTO) 0.6 % (0.0-5.0); EOSINOPHILS # (AUTO) 0.24 K/uL (0.00-0.70); EOSINOPHILS % (AUTO) 2.6 % (0.0-8.0); HEMATOCRIT 35.1 % (42-54); IMMATURE GRANULOCYTE ABSOLUTE 0.03 K/uL (0-1); LYMPHOCYTES # (AUTO) 2.8 K/uL (1.0-4.8); LYMPHOCYTES % (AUTO) 31.1 % (21.0-51.0); MEAN CORPUSCULAR HEMOGLOBIN 31.2 pg (27.0-33.0); MEAN CORPUSCULAR VOLUME 94.4 fL (79-99); MONOCYTES # (AUTO) 0.7 K/uL (0.1-1.0); MONOCYTES % (AUTO) 7.4 % (3.0-13.0); NEUTROPHILS # (AUTO) 5.3 K/uL (1.8-7.7); PLATELET COUNT (AUTO) 321 K/uL (130-400); RED BLOOD CELL COUNT(AUTO) 3.72 MIL/uL (4.50-6.20); RED CELL DISTRIBUTION WIDTH 14.9 % (11.0-15.5); WHITE BLOOD COUNT (AUTO) 9.1 K/uL (4.8-10.8)
[2023-12-24 04:28] LABS: ALBUMIN 2.8 g/dL (3.5-5.0); BILIRUBIN,TOTAL 1.1 mg/dL (0.2-1.0); CREATININE 0.9 mg/dL (0.5-1.3); POTASSIUM 3.6 mmol/L (3.5-5.1); TOTAL PROTEIN, SERUM 6.8 g/dL (6.0-8.3)
[2023-12-24] MEDS: KCL 20 MEQ ERTAB PO SCH (20:32)
[2023-12-25] VITALS (13 sets, daily range): BP systolic 91–121; BP diastolic 62–70; PULSE 71–93; RESP 18–20; O2SAT 97–99
[2023-12-25 03:57] LABS: BASOPHILS # (AUTO) 0.05 K/uL (0.00-0.20); BASOPHILS % (AUTO) 0.5 % (0.0-5.0); EOSINOPHILS # (AUTO) 0.27 K/uL (0.00-0.70); EOSINOPHILS % (AUTO) 2.7 % (0.0-8.0); HEMATOCRIT 33.8 % (42-54); IMMATURE GRANULOCYTE ABSOLUTE 0.03 K/uL (0-1); LYMPHOCYTES # (AUTO) 3.3 K/uL (1.0-4.8); LYMPHOCYTES % (AUTO) 33.2 % (21.0-51.0); MEAN CORPUSCULAR HGB CONC 33.4 g/dL (32.0-36.0); MEAN CORPUSCULAR VOLUME 92.9 fL (79-99); MONOCYTES # (AUTO) 0.7 K/uL (0.1-1.0); MONOCYTES % (AUTO) 6.8 % (3.0-13.0); NEUTROPHILS # (AUTO) 5.6 K/uL (1.8-7.7); NEUTROPHILS % (AUTO) 56.5 % (40.0-77.0); PLATELET COUNT (AUTO) 322 K/uL (130-400); RED BLOOD CELL COUNT(AUTO) 3.64 MIL/uL (4.50-6.20); RED CELL DISTRIBUTION WIDTH 14.9 % (11.0-15.5)
[2023-12-25 04:13] LABS: CREATININE 0.8 mg/dL (0.5-1.3); MAGNESIUM 1.9 mg/dL (1.80-2.40); POTASSIUM 3.9 mmol/L (3.5-5.1)
[2023-12-26] VITALS (10 sets, daily range): BP systolic 97–118; BP diastolic 57–74; PULSE 74–97; RESP 16–20; O2SAT 95–98
[2023-12-26] MEDS ORDERED: COMPOUND IV REFRIGERATED 1 EACH IVSOLN MISC PRN (08:30)
[2023-12-26] MEDS: METOPROLOL SUCCINATE 25 MG TAB.SR.24H PO SCH (10:15)
[2023-12-26] MEDS ORDERED: PIOG15TA66 PO (15:17)
[2023-12-26] MEDS ORDERED: FURO40TA7 PO (15:17)
[2023-12-26] MEDS ORDERED: EMPA10TA PO (15:17)
[2023-12-26] MEDS ORDERED: ASPI-1005 NG (15:17)
[2023-12-26] MEDS ORDERED: LISI5TAB21 PO (15:17)
[2023-12-26] MEDS ORDERED: METF-446 PO (15:17)
[2023-12-26] MEDS ORDERED: CLOP-31 PO (15:17)
[2023-12-26] MEDS ORDERED: POLY17PO4 PO (15:17)
[2023-12-26] MEDS ORDERED: SPIR25TA6 PO (15:17)
[2023-12-26] MEDS ORDERED: METO25TA3 PO (15:17)
[2023-12-26] MEDS ORDERED: ATOR40TA69 NG (15:17)
[2023-12-26] MEDS ORDERED: LISINOPRIL 5 MG TABLET PO SCH (21:00)
== END 2023-12-26 19:40 | disposition home or self-care (01) | DRG 870 ==
LOC: 2CH 09:37 → 2DH 12-16 16:29 → 2BH 12-20 14:04 → 2DH 12-22 23:01
PROVIDERS: ADMIT Internal Medicine; ATTEND Internal Medicine
PROC: 03HY32Z Insertion of Monitoring Device into Upper Artery, Percutaneous Approach (ICD-10-PCS; principal; 2023-12-11)
PROC: 5A1955Z Respiratory Ventilation, Greater than 96 Consecutive Hours (ICD-10-PCS; 2023-12-11)
PROC: 0BH17EZ Insertion of Endotracheal Airway into Trachea, Via Natural or Artificial Opening (ICD-10-PCS; 2023-12-11)
PROC: 4A023N7 Measurement of Cardiac Sampling and Pressure, Left Heart, Percutaneous Approach (ICD-10-PCS; 2023-12-19)
PROC: B2111ZZ Fluoroscopy of Multiple Coronary Arteries using Low Osmolar Contrast (ICD-10-PCS; 2023-12-19)
DX: A41.9 Sepsis, unspecified organism (principal); I21.09 ST elevation (STEMI) myocardial infarction involving other coronary artery of anterior wall; I46.9 Cardiac arrest, cause unspecified; J96.01 Acute respiratory failure with hypoxia; J96.02 Acute respiratory failure with hypercapnia; R57.0 Cardiogenic shock; R65.21 Severe sepsis with septic shock; G93.41 Metabolic encephalopathy; I50.23 Acute on chronic systolic (congestive) heart failure; J15.69 Pneumonia due to other Gram-negative bacteria; J69.0 Pneumonitis due to inhalation of food and vomit; E87.4 Mixed disorder of acid-base balance; E87.20 Acidosis, unspecified; G93.1 Anoxic brain damage, not elsewhere classified; N17.9 Acute kidney failure, unspecified; J98.11 Atelectasis; I13.0 Hypertensive heart and chronic kidney disease with heart failure and stage 1 through stage 4 chronic kidney disease, or unspecified chronic kidney disease; Z20.822 Contact with and (suspected) exposure to COVID-19; Z92.82 Status post administration of tPA (rtPA) in a different facility within the last 24 hours prior to admission to current facility; D72.829 Elevated white blood cell count, unspecified; B96.1 Klebsiella pneumoniae [K. pneumoniae] as the cause of diseases classified elsewhere; E11.22 Type 2 diabetes mellitus with diabetic chronic kidney disease; E11.51 Type 2 diabetes mellitus with diabetic peripheral angiopathy without gangrene; E11.65 Type 2 diabetes mellitus with hyperglycemia; E66.9 Obesity, unspecified; E78.5 Hyperlipidemia, unspecified; N18.9 Chronic kidney disease, unspecified; I25.5 Ischemic cardiomyopathy; E87.6 Hypokalemia; E83.51 Hypocalcemia; D69.6 Thrombocytopenia, unspecified; D64.9 Anemia, unspecified; E87.5 Hyperkalemia; F14.129 Cocaine abuse with intoxication, unspecified; I25.10 Atherosclerotic heart disease of native coronary artery without angina pectoris; Z79.84 Long term (current) use of oral hypoglycemic drugs; Z79.899 Other long term (current) drug therapy; Z68.34 Body mass index [BMI] 34.0-34.9, adult
CPT/HCPCS: 36415; 36600; 70450; 70551; 71045; 80048; 80053; 80061; 80076; 80202; 80305; 81001; 82010; 82140; 82306; 82435; 82550; 82803; 82947; 82948; 83036; 83605; 83735; 83880; 84100; 84132; 84145; 84295; 84443; 84484; 85018; 85025; 85027; 85347; 85610; 85730; 86140; 87040; 87071; 87086; 87186; 87205; 87635; 87804; 87880; 92610; 92950; 93005; 93306; 93458; 93880; 94002; 94003; 94010; 94150; 94640; 94664; 94760; 99156; 99157; C1769; C9113; G0378; J0171; J0612; J0692; J1644; J1650; J1815; J1940; J1956; J2060; J2250; J2270; J2405; J2704; J3010; J3360; J3370; J3411; J3475; J3480; J3490; J7050; J7070; J7608; P9045; Q9967; 3370; A4649; C1894; Q9965